=== PATIENT | female | born 1960 | race Caucasian/White ===

== ENCOUNTER 2024-05-14 07:50 | Emergency (ER) | payer SELFPAY ==
[2024-05-14] MEDS ORDERED: CEFTRIAXONE 500 MG/VIAL ONE (08:49)
[2024-05-14] MEDS ORDERED: AZITHROMYCIN 250 MG TAB ONE (08:49)
[2024-05-14] MEDS ORDERED: dexAMETHasone 10 MG/ML VIAL ONE (08:49)
[2024-05-14] MEDS ORDERED: LIDOCAINE 1% 20 ML MDV ONE (08:50)
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
[2024-05-14 09:41] VITALS: BP 160/102; TEMP 98.4; O2SAT 100
== END 2024-05-14 09:35 | disposition home or self-care (01) ==
LOC: ER 07:50
DX: J01.80 Other acute sinusitis (principal)
CPT/HCPCS: 96372; 99284; J1100; J2001

== ENCOUNTER 2024-10-23 09:10 | Inpatient (IN) | payer MEDICAID, SELFPAY ==
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
--- NOTE | 2024-10-23 10:03 | RAD REPORT ---
EXAM: Chest Single View HISTORY: COUGH COMPARISON: None. FINDINGS: LUNGS/PLEURA: Scattered areas of mild nodularity and bronchial wall thickening. No consolidative airs pace disease or edema. MEDIASTINUM: The mediastinal silhouette is within normal limits. CARDIAC: The cardiac silhouette is within normal limits. UPPER ABDOMEN: No significant abnormality. BONES: No acute abnormality. LINES/TUBES/OTHER: N/A IMPRESSION: Scattered mild nodularity and bronchial wall thickening concerning for a mild infectious or inflammat ory process. No consolidative airspace disease or edema.
[2024-10-23 10:30] LABS: SARS-CoV-2 Antigen CONTROL BLUE LINE VIS/BG OK; SARS-CoV-2 Antigen Rapid Res Negative (Negative)
[2024-10-23] MEDS ORDERED: IPRATROPIUM BROM 0.5MG/2.5ML ONE (11:07)
[2024-10-23] MEDS ORDERED: ALBUTEROL 2.5 MG/3 ML NEB SOL ONE (11:07)
[2024-10-23 11:54] LABS: Absolute Basophils 0.1 K/uL (0-0.5); Absolute Lymphocytes (CBC) 1.8 K/uL (0.7-4.9); Absolute Monocytes 2.6 K/uL (0.1-1.3); Basophils % 0.2 % (0-1.3); Hematocrit 37.7 % (36.0-45.0); Hemoglobin 12.5 g/dL (12.0-15.0); Lymphocytes % 6.2 % (15.3-44.8); MCH 28.6 pg (27.0-35.0); MCHC 33.3 g/dL (32.0-36.0); MCV 85.9 fL (80-100); MPV 8.6 fL (7.6-11.3); Monocytes % 9.3 % (3.3-12.3); Neutrophils % 84.3 % (41.7-73.7); Platelets 321 thou/uL (152-406); RBC Red Blood Cell Count 4.39 M/uL (3.86-4.86); Red Cell Distribution Width 12.9 % (12.1-15.2)
[2024-10-23 12:14] LABS: Anion Gap 9.1 mEq/L (5.0-15.0); Potassium 4.1 mEq/L (3.5-5.1); Troponin High Sensitivity 3.7 pg/mL (<58.9)
[2024-10-23 13:03] LABS: Band Neutrophils 1 % (0-1); Differential Total Cells Count 100; Lymphocytes 7 % (15-42); Monocytes 10 % (0-10); Segmented Neutrophils 81 % (40-80)
[2024-10-23 13:04] LABS: Blood Morphology Comment NOT SEEN (NOT SEEN); Platelet Estimate ADEQ
--- NOTE | 2024-10-23 13:13 | EDPHYS ---
Physician Documentation [facility] Name: Keturah Torres Age: 64 yrs Sex: Female : 1960 Arrival Date: 10/23/2024 Time: 09:10 Bed 13 Private MD: ED Physician Pj Lechuga HPI: 10/23 11:34 This 64 yrs old Female presents to ER via Ambulatory with complaints of Flu Symptoms. sp3 11:34 64-year-old female with history of probable undiagnosed COPD due to lifelong smoking, sp3 who resides at the [facility], now presents to the ED with chief complaint productive cough, congestion, and bodyaches. Patient denies any back pain, abdominal pain, vomiting, diarrhea, headache, rash, syncope, or any other signs or symptoms on ROS at this time. Positive sick contacts reported.. Historical: - Allergies: 09:47 No Known Allergies; iw - Home Meds: 09:47 None [Active]; iw - PMHx: 09:47 None; iw - PSHx: 09:47 tubal ligation; iw - Immunization history:: Adult Immunizations Flu vaccine is not up to date. - Infectious Disease History:: Denies. - Social history:: Smoking status: Patient/guardian denies using tobacco, Stopped _ months ago 1. ROS: 11:35 Constitutional: Negative for fever, chills, and weight loss, Eyes: Negative for injury, sp3 pain, redness, and discharge, Neck: Negative for injury, pain, and swelling, Abdomen/GI: Negative for abdominal pain, nausea, vomiting, diarrhea, and constipation, Back: Negative for injury and pain, MS/Extremity: Negative for injury and deformity, Skin: Negative for injury, rash, and discoloration, Neuro: Negative for headache, weakness, numbness, tingling, and seizure, Psych: Negative for depression, anxiety, suicide ideation, homicidal ideation, and hallucinations, Allergy/Immunology: Negative for hives, rash, and allergies, Endocrine: Negative for neck swelling, polydipsia, polyuria, polyphagia, and marked weight changes, Hematologic/Lymphatic: Negative for swollen nodes, abnormal bleeding, and unusual bruising, 11:35 All other systems are negative, Exam: 11:36 Constitutional: This is a well developed, well nourished patient who is awake, alert, sp3 and in no acute distress. Head/Face: Normocephalic, atraumatic. Eyes: Pupils equal round and reactive to light, extra-ocular motions intact. Lids and lashes normal. Conjunctiva and sclera are non-icteric and not injected. Cornea within normal limits. Periorbital areas with no swelling, redness, or edema. ENT: Nares patent. No nasal discharge, no septal abnormalities noted. External auditory canals are clear. Oropharynx with no redness, swelling, or masses, exudates, or evidence of obstruction, uvula midline. Mucous membranes moist. Neck: Trachea midline, no thyromegaly or masses palpated, and no cervical lymphadenopathy. Supple, full range of motion without nuchal rigidity, or vertebral point tenderness. No Meningismus. Chest/axilla: Normal chest wall appearance and motion. Nontender with no deformity. No lesions are appreciated. Abdomen/GI: Soft, non-tender, with normal bowel sounds. No distension or tympany. No guarding or rebound. No evidence of tenderness throughout. Back: No spinal tenderness. No costovertebral tenderness. Full range of motion. Skin: Warm, dry with normal turgor. Normal color with no rashes, no lesions, and no evidence of cellulitis. MS/ Extremity: Pulses equal, no cyanosis. Neurovascular intact. Full, normal range of motion. Neuro: Awake and alert, GCS 15, oriented to person, place, time, and situation. Cranial nerves II-XII grossly intact. Motor strength 5/5 in all extremities. Sensory grossly intact. Cerebellar exam normal. Normal gait. Psych: Awake, alert, with orientation to person, place and time. Behavior, mood, and affect are within normal limits. 11:36 Respiratory: Patient tachycardic in the 110 range. Active productive cough noted with mild rhinorrhea as well. Patient with scattered wheeze., Vital Signs: 09:47 BP 146 / 86; Pulse 118; Resp 22; Temp 98.9; Pulse Ox 93% on R/A; Weight 53.52 kg; iw Height 5 ft. 7 in. ; 10:57 BP 141 / 86; Pulse 114; Resp 20; Pulse Ox 93% on R/A; me1 12:00 BP 140 / 73; Pulse 113; Resp 18; Pulse Ox 95% on 2 lpm NC; me1 13:00 BP 143 / 77; Pulse 113; Resp 18; Pulse Ox 93% on 2 lpm NC; me1 14:00 BP 152 / 83; Pulse 110; Resp 18; Pulse Ox 94% on 2 lpm NC; me1 15:00 BP 141 / 76; Pulse 114; Resp 16; Pulse Ox 95% on 2 lpm NC; me1 16:00 BP 154 / 82; Pulse 109; Resp 17; Pulse Ox 98% on 2 lpm NC; me1 17:00 BP 140 / 77; Pulse 108; Resp 19; Pulse Ox 92% on 2 lpm NC; me1 18:00 BP 145 / 79; Pulse 109; Resp 16; Pulse Ox 92% on 2 lpm NC; me1 18:30 BP 130 / 75; Pulse 111; Resp 19; Pulse Ox 93% on 2 lpm NC; me1 19:00 BP 128 / 65; Pulse 102; Resp 16; Pulse Ox 95% on 2 lpm NC; me1 09:47 Body Mass Index 18.48 (53.52 kg, 170.18 cm) iw MDM: 09:19 Medical Screening Exam initiated sp3 11:37 Data reviewed: vital signs, nurses notes, lab test result(s), EKG, radiologic studies. sp3 ED course: 64-year-old female with probable undiagnosed COPD now with rhonchi, cough, URI symptoms. Differential diagnosis includes viral illness, bronchitis, pneumonia, COVID-19, influenza, CHF, COPD exacerbation, among others. Workup will include chest x-ray, general labs, swabs and supportive care. Nebulizer also ordered. Disposition pending workup and patient course.. 13:11 ED course: Patient with 28,000 WBC count coupled with chest x-ray findings we will sp3 treat for pneumonia. Cefepime and vancomycin ordered. Lactate also added as well as normal saline. Patient will be admitted to the hospitalist service for continued management.. 10/23 09:19 Order name: Flu; Complete Time: 13: sp3 10/23 09:19 Order name: SARS RAPID; Complete Time: :3 10/23 09:19 Order name: RSV; Complete Time: 13:3 10/23 11:07 Order name: Basic Metabolic Panel; Complete Time: 13:3 10/23 11:07 Order name: CBC with Diff; Complete Time: 13: sp3 10/23 11:07 Order name: NT PRO-BNP; Complete Time: 13:09 sp3 10/23 11:07 Order name: Troponin HS; Complete Time: 13:09 sp3 10/23 12:00 Order name: Manual Differential; Complete Time: 13:09 EDMS 10/23 13:10 Order name: Lactate w/ 2H reflex if indic.; Complete Time: 14:07 3 10/23 13:10 Order name: Blood Culture Adult (2) sp3 10/23 14:46 Order name: Magnesium; Complete Time: 15:15 EDMS 10/23 14:46 Order name: Phosphorus; Complete Time: 15:15 EDMS 10/23 14:46 Order name: Urinalysis w/ reflexes EDMS 10/23 14:46 Order name: Basic Metabolic Panel EDMS 10/23 14:46 Order name: Basic Metabolic Panel EDMS 10/23 14:46 Order name: CBC with Automated Diff EDMS 10/23 14:46 Order name: CBC with Automated Diff EDMS 10/23 14:46 Order name: Lipid Profile EDMS 10/23 14:46 Order name: Lipid Profile EDMS 10/23 09:19 Order name: CXR XRAY; Complete Time: 10:04 3 10/23 14:49 Order name: Thorax Wo Con; Complete Time: 15:15 EDMS 10/23 11:07 Order name: EKG; Complete Time: 11:08 3 10/23 11:07 Order name: IV Saline Lock; Complete Time: 11:49 sp3 10/23 11:07 Order name: Labs collected and sent; Complete Time: 11:49 3 10/23 11:07 Order name: O2 Per Protocol; Complete Time: 11:49 sp3 10/23 11:07 Order name: O2 Sat Monitoring; Complete Time: 11:49 sp3 10/23 11:07 Order name: EKG - Nurse/Tech; Complete Time: 12:07 3 Administered Medications: 11:09 Drug: DuoNeb Nebulize (3:1) (2.5 mg - 0.5 mg) 3 ml Nebulizer once Route: Nebulizer; me1 11:36 Follow up: Response: No adverse reaction; Wheezing diminished me1 13:33 Drug: NS 0.9% IV 1000 ml IV at 1000 ml once; to be given as a bolus over 60 minutes me1 Route: IV; Rate: 1000 ml; Site: right antecubital; 14:40 Follow up: Response: No adverse reaction; IV Status: Completed infusion; IV Intake: me1 1000ml 13:34 Drug: Cefepime IVPB 1 grams IVPB at 200 ml/hr once over 30 mins; (mix in NS 100 mL) me1 Route: IVPB; Rate: 200 ml/hr; Infused Over: 30 mins; Site: right antecubital; 13:58 Follow up: Response: No adverse reaction; IV Status: Completed infusion; IV Intake: me1 100ml 13:58 Drug: vancoMYCIN IVPB 1 grams IVPB once over 2 hrs Route: IVPB; Infused Over: 2 hrs; me1 Site: right antecubital; 15:58 Follow up: Response: No adverse reaction; IV Status: Completed infusion; IV Intake: me1 250ml Disposition Summary: 10/23/24 13:12 Hospitalization Ordered Notes: Hospitalization Status: Inpatient Admission sp3 Provider: Christin Johnson sp3 Condition: Stable sp3 Problem: an acute exacerbation sp3 Symptoms: have worsened sp3 Bed/Room Type: Standard sp3 Location: Telemetry/MedSurg (Inpatient)(10/23/24 18:33) bd Room Assignment: [facility](10/23/24 18:33) bd Diagnosis - Pneumonia, hypoxia, leukocytosis sp3 Forms: - Medication Reconciliation Form sp3 - SBAR form sp3 - Leadership Thank You Letter sp3 Signatures: Dispatcher [employer] EDCaren Madrigal Irene, RN RN Pj Lechuga MD MD sp3 Laura Rubi RN RN me1 Corrections: (The following items were deleted from the chart) 16:35 13:12 Telemetry/MedSurg (Inpatient) sp3 bd 16:35 13:12 sp3 bd 18:33 16:35 [facility] ER HOLD bd bd 18:33 16:35 ERHOLD- bd bd
--- NOTE | 2024-10-23 13:13 | ER ---
Nurse's Notes [facility] Name: Keturah Torres Age: 64 yrs Sex: Female : 1960 Arrival Date: 10/23/2024 Time: 09:10 Bed 13 Private MD: Diagnosis: Pneumonia, hypoxia, leukocytosis Presentation: 10/23 09:47 Chief complaint: Patient states: cough, nausea , diarrhea X 10 days. Coronavirus iw screen: Client presents with at least one sign or symptom that may indicate coronavirus-19. Ebola Screen: No symptoms or risks identified at this time. Initial Sepsis Screen: Does the patient meet any 2 criteria? HR > 90 bpm. Does the patient have a suspected source of infection? No. Patient's initial sepsis screen is negative. Risk Assessment: Do you want to hurt yourself or someone else? Patient reports no desire to harm self or others. Onset of symptoms was October 13, 2024. 09:47 Method Of Arrival: Ambulatory iw 09:47 Acuity: PAULA 3 iw Historical: - Allergies: 09:47 No Known Allergies; iw - Home Meds: 09:47 None [Active]; iw - PMHx: 09:47 None; iw - PSHx: 09:47 tubal ligation; iw - Immunization history:: Adult Immunizations Flu vaccine is not up to date. - Infectious Disease History:: Denies. - Social history:: Smoking status: Patient/guardian denies using tobacco, Stopped _ months ago 1. Screenin:38 [facility] ED Fall Risk Assessment (Adult) History of falling in the last 3 months, me1 including since admission No falls in past 3 months (0 pts) Confusion or Disorientation No (0 pts) Intoxicated or Sedated No (0 pts) Impaired Gait No (0 pts) Mobility Assist Device Used No (0 pt) Altered Elimination No (0 pt) Score/Fall Risk Level 0 - 2 = Low Risk Maintained a safe environment, Provided non-skid footwear, Hourly rounding (assess needs \T\ fall precautionary measures) done. Abuse screen: Denies threats or abuse. Nutritional screening: No deficits noted. Tuberculosis screening: No symptoms or risk factors identified. Assessment: 10:38 General: Appears ill, well developed, well nourished, Behavior is calm, cooperative, me1 appropriate for age, Reports cough, nausea, diarrhea x 10 days. Pain: Denies pain. Neuro: Level of Consciousness is awake, alert, obeys commands, Oriented to person, place, time, situation, Appropriate for age. Cardiovascular: Patient's skin is warm and dry. Respiratory: Reports cough that is persistent Airway is patent Respiratory effort is even, unlabored, Respiratory pattern is regular, symmetrical. GI: Reports diarrhea, nausea, since 10 days ago. : No signs and/or symptoms were reported regarding the genitourinary system. EENT: No signs and/or symptoms were reported regarding the EENT system. Derm: Skin is intact, is healthy with good turgor, Skin is pink, warm \T\ dry. Musculoskeletal: No signs and/or symptoms reported regarding the musculoskeletal system. Vital Signs: 09:47 BP 146 / 86; Pulse 118; Resp 22; Temp 98.9; Pulse Ox 93% on R/A; Weight 53.52 kg; iw Height 5 ft. 7 in. ; 10:57 BP 141 / 86; Pulse 114; Resp 20; Pulse Ox 93% on R/A; me1 12:00 BP 140 / 73; Pulse 113; Resp 18; Pulse Ox 95% on 2 lpm NC; me1 13:00 BP 143 / 77; Pulse 113; Resp 18; Pulse Ox 93% on 2 lpm NC; me1 14:00 BP 152 / 83; Pulse 110; Resp 18; Pulse Ox 94% on 2 lpm NC; me1 15:00 BP 141 / 76; Pulse 114; Resp 16; Pulse Ox 95% on 2 lpm NC; me1 16:00 BP 154 / 82; Pulse 109; Resp 17; Pulse Ox 98% on 2 lpm NC; me1 17:00 BP 140 / 77; Pulse 108; Resp 19; Pulse Ox 92% on 2 lpm NC; me1 18:00 BP 145 / 79; Pulse 109; Resp 16; Pulse Ox 92% on 2 lpm NC; me1 18:30 BP 130 / 75; Pulse 111; Resp 19; Pulse Ox 93% on 2 lpm NC; me1 19:00 BP 128 / 65; Pulse 102; Resp 16; Pulse Ox 95% on 2 lpm NC; me1 09:47 Body Mass Index 18.48 (53.52 kg, 170.18 cm) iw ED Course: 09:16 Patient arrived in ED. im 09:18 Pj Lechuga MD is Attending Physician. sp3 09:47 Triage completed. iw 09:48 Arm band placed on. iw 10:00 CXR XRAY In Process Unspecified. EDMS 10:16 RSV Sent. bc6 10:16 SARS RAPID Sent. bc6 10:16 Flu Sent. bc6 10:37 Laura Rubi, RN is Primary Nurse. me1 10:38 Patient has correct armband on for positive identification. Bed in low position. Call me1 light in reach. Side rails up X2. Provided Education on: POC. Verbalized understanding.. Client placed on continuous cardiac and pulse oximetry monitoring. NIBP monitoring applied. Pulse ox on. NIBP on. 10:38 No provider procedures requiring assistance completed. me1 10:39 Patient placed in an exam room, on a stretcher. ll1 13:12 Christin Johnson MD is Hospitalizing Provider. sp3 13:33 Blood Culture Adult (2) Sent. me1 13:33 Lactate w/ 2H reflex if indic. Sent. me1 15:02 Thorax Wo Con In Process Unspecified. EDMS 17:00 Patient admitted, IV remains in place. me1 Administered Medications: 11:09 Drug: DuoNeb Nebulize (3:1) (2.5 mg - 0.5 mg) 3 ml Nebulizer once Route: Nebulizer; me1 11:36 Follow up: Response: No adverse reaction; Wheezing diminished me1 13:33 Drug: NS 0.9% IV 1000 ml IV at 1000 ml once; to be given as a bolus over 60 minutes me1 Route: IV; Rate: 1000 ml; Site: right antecubital; 14:40 Follow up: Response: No adverse reaction; IV Status: Completed infusion; IV Intake: me1 1000ml 13:34 Drug: Cefepime IVPB 1 grams IVPB at 200 ml/hr once over 30 mins; (mix in NS 100 mL) me1 Route: IVPB; Rate: 200 ml/hr; Infused Over: 30 mins; Site: right antecubital; 13:58 Follow up: Response: No adverse reaction; IV Status: Completed infusion; IV Intake: me1 100ml 13:58 Drug: vancoMYCIN IVPB 1 grams IVPB once over 2 hrs Route: IVPB; Infused Over: 2 hrs; me1 Site: right antecubital; 15:58 Follow up: Response: No adverse reaction; IV Status: Completed infusion; IV Intake: me1 250ml Medication: 10:38 VIS not applicable for this client. me1 Intake: 13:58 IV: 100ml; Total: 100ml. me1 14:40 IV: 1000ml; Total: 1100ml. me1 15:58 IV: 250ml; Total: 1350ml. me1 Outcome: 13:12 Decision to Hospitalize by Provider. sp3 17:00 Admitted to ER Hold. Please see [facility] for further documentation. me1 17:00 Condition: stable 17:00 Instructed on the need for admit, 18:54 Admitted to Med/surg accompanied by tech, via wheelchair, room 207, with oxygen, with sd1 chart, Report called to faxed, receipt confirmed with Suki 18:54 Condition: stable 18:54 Instructed on the need for admit, 19:55 Patient left the ED. sd1 Signatures: Dispatcher [employer] Sena Elizabeth RN RN Anil Mathis RN RN ll1 Pj Lechuga MD MD sp3 Dariela Dhaliwal 6 Maureen Adhikari Michelle, RN RN me1 Corrections: (The following items were deleted from the chart) 09:48 09:47 BP 146 / 86; Pulse 118bpm; Resp 22bpm; Pulse Ox 93% RA; Temp 98.9F; [facility] 10:58 10:57 BP 141 / 86; Pulse 114bpm; Resp 20bpm; Pulse Ox 90% RA; sd1 me1 13:45 13:00 Reassessment: Accompanied patient to CT me1 me1
[2024-10-23] MEDS ORDERED: CEFAZOLIN SODIUM 1 GM/VIAL ONE (13:21)
[2024-10-23] MEDS ORDERED: NA CHLORIDE 0.9% 100 ML ONE (13:21)
[2024-10-23] MEDS ORDERED: VANCOMYCIN 1 GM/VIAL ONE (13:21)
[2024-10-23] MEDS ORDERED: NA CHLORIDE 0.9% 250 ML ONE (13:21)
[2024-10-23] MEDS ORDERED: NA CHLORIDE 0.9% 1,000 ML ONE (13:21)
[2024-10-23] MEDS ORDERED: CEFEPIME 1 GM/VIAL ONE (13:25)
[2024-10-23] MEDS ORDERED: ONDANSETRON 4 MG/2 ML VIAL IV PRN (14:41)
[2024-10-23] MEDS ORDERED: HYDROCODONE/APAP 5/325 MG TAB PO PRN (14:41)
--- NOTE | 2024-10-23 14:51 | P.HP ---
Certification for Inpatient Patient admitted to: Inpatient With expected LOS: >2 Midnights Patient will require the following post-hospital care: None Practitioner: I am a practitioner with admitting privileges, knowledge of patient current condition, hospital course, and medical plan of care. Services: Services provided to patient in accordance with Admission requirements found in Title 42 Section 412.3 of the Code of Federal Regulations Patient History Date of Service: 10/23/24 Reason for admission: SOB, Cough History of Present Illness: Patient is a 64-year-old female with a past medical history significant for COPD, CKD, nicotine dependence who presents with complaint of shortness of breath, cough, Rhinorrhea and fever. Patient reported that she has been experiencing symptoms for the past couple of days. Patient reported associated signs and symptoms of chills, nausea, vomiting, dizziness, fatigue, weakness, generalized body aches, poor appetite and generalized malaise. Patient denies any other signs and symptoms. Symptoms are aggravated or relieved by anything. Patient decided to present to the hospital due to worsening symptoms. Allergies No Known Allergies Allergy (Unverified 10/23/24 15:22) Home medications list reviewed: No - Past Medical/Surgical History Diabetic: No -: COPD -: Tobacco Use -: CKD Past Surgical History: Reviewed- Non-Contributory - Family History Family History: Reviewed- Non-Contributory - Social History Smoking Status: Current every day smoker Smoking therapy provided: Yes Patient receptive to therapy: Yes Alcohol use: Yes CD- Drugs: No Caffeine use: Yes Place of Residence: Home Review of Systems General: Fever, Chills, Weakness, Malaise, Other (generalized body aches, poor appetite. ) Eyes: Unremarkable ENT: Nose Congestion, Other (Rhinorrhea) Respiratory: Cough, Shortness of Breath Cardiovascular: Unremarkable Gastrointestinal: Nausea, Vomiting Genitourinary: Unremarkable Musculoskeletal: Unremarkable Integumentary: Unremarkable Neurological: Weakness Lymphatics: Unremarkable Physical Examination - Physical Exam General: Alert, In no apparent distress, Oriented x3, Cooperative HEENT: Atraumatic, PERRLA, Mucous membr. moist/pink, EOMI, Sclerae nonicteric Neck: Supple, 2+ carotid pulse no bruit, No LAD, Without JVD or thyroid abnormal ity Respiratory: Normal air movement, Diminished Cardiovascular: No edema, Regular rate/rhythm, Normal S1 S2 Capillary refill: <2 Seconds Gastrointestinal: Normal bowel sounds, Non-distended, No tenderness Musculoskeletal: No clubbing, No swelling, No tenderness Integumentary: No rashes, No significant lesion Neurological: Normal speech, Normal tone, Normal affect Lymphatics: No axilla or inguinal lymphadenopathy - Studies Laboratory Data (last 24 hrs) 10/23/24 10/23/24 11:45 11:45 WBC 28.50 H Hgb 12.5 Hct 37.7 Plt Count 321 Sodium 130 L Potassium 4.1 BUN 20 H Creatinine 0.85 Glucose 107 H Microbiology Data (last 24 hrs): 10/23/24 10:10 Nasopharnyx Influenza Type A Antigen Screen - Final 10/23/24 10:10 Nasopharnyx Influenza Type B Antigen Screen - Final 10/23/24 10:10 Nasopharnyx Respiratory Syncytial Virus Ag Scrn - Final Assessment and Plan - Plan Acute respiratory failure with hypoxia Acute on chronic COPD exacerbation Pneumonia. --Chest Xray indicates findings concerning for an infectious or inflammatory process. --Patient placed on antibiotics. --Blood cultures pending. --Continue nebulizer treatment with Atrovent\albuterol Sepsis POA. Leukocytosis --Blood cultures pending. --Continue antibiotics. CKD 2. --Baseline functions unknown. --Continue p.o. hydration. --Will continue to monitor renal functions. Nausea and vomiting. --Antiemetics on board. Cough. --Continue antitussives. Nicotine dependence. --Patient counseled on tobacco cessation. --Refuses nicotine patch. DVT prophylaxis with Lovenox subQ. Discharge Plan: Home Plan to discharge in: Greater than 2 days - Advance Directives Does patient have a Living Will: No Does patient have a Durable POA for Healthcare: No - Code Status/Comfort Care Code Status Assessed: Yes Code Status: Full Code Physician Review: Patient Assessed, Agree with Above Assessment and Plan Critical Care: No
[2024-10-23 15:08] LABS: Magnesium 2.1 mg/dL (1.6-2.4); Phosphorus 3.8 mg/dL (2.5-4.9)
--- NOTE | 2024-10-23 15:11 | RAD REPORT ---
EXAMINATION: CT CHEST WITHOUT CONTRAST CLINICAL INDICATION: R O PNA TECHNIQUE: Routine CT scan of the chest without intravenous contrast. One or more of the following do se reduction techniques were used: Automated exposure control, adjustment of the mA and/or kV according to patient size, and/or iterative reconstruction. Unless otherwise specified, incidental fi ndings do not require dedicated imaging follow-up. COMPARISON: Plain radiograph same date FINDINGS: LOWER NECK: Visualized thyroid gland and soft tissues are normal. LUNGS: There is tree-in-bud opacity seen posterior right upper lobe, superior segment left lower lobe to a lesser extent left upper lobe. Similar moderate tree-in-bud opacities right middle lobe and both lung bases, greatest in the left posterior gutter. This is compatible with endobronchial spread of infection. PLEURA: No pleural effusion. No pneumothorax. . MEDIASTINUM AND LYMPH NODES: No mediastinal mass or fluid collection. Normal size mediastinal, hilar, and axillary lymph nodes. OSSEOUS STRUCTURES AND CHEST WALL: Intact. Mild mid thoracic wedging. UPPER ABDOMEN: No significant abnormalities. IMPRESSION: Areas of bilateral tree-in-bud opacities are present as detailed most compatible portable with endobr onchial spread of atypical infection. Examination limited by lack of IV contrast.
[2024-10-23] MEDS: ENOXAPARIN 40 MG/0.4 ML SQ SCH (17:00)
[2024-10-23] MEDS ORDERED: ACETAMINOPHEN 325 MG TABLET ONE (17:46)
[2024-10-23] MEDS ORDERED: ENOXAPARIN 40 MG/0.4 ML SQ ONE (17:47)
[2024-10-23] MEDS: ACETAMINOPHEN 325 MG TABLET PO PRN (17:52)
[2024-10-23] MEDS: FLU (Fluarix Triv) TS24-25(6MOS UP)/PF 45 MCG/0.5 ML Syringe IM ONE (18:00)
[2024-10-23] MEDS: ALBUTEROL 2.5 MG/3 ML NEB SOL NEB SCH (20:25)
[2024-10-23] MEDS: IPRATROPIUM BROM 0.5MG/2.5ML NEB SCH (20:25)
[2024-10-23] MEDS: CEFTRIAXONE 1,000 MG in NA CHLORIDE 0.9% 50 ML IVPB SCH (21:45)
[2024-10-24 05:28] LABS: Absolute Basophils 0.1 K/uL (0-0.5); Absolute Lymphocytes (CBC) 1.3 K/uL (0.7-4.9); Absolute Monocytes 1.8 K/uL (0.1-1.3); Absolute Neutrophil 17.8 K/uL (1.8-8.0); Basophils % 0.3 % (0-1.3); Eosinophils % 0.1 % (0-4.4); Hemoglobin 11.6 g/dL (12.0-15.0); Lymphocytes % 6.1 % (15.3-44.8); MCH 29.3 pg (27.0-35.0); MCHC 34.1 g/dL (32.0-36.0); MCV 85.7 fL (80-100); MPV 8.8 fL (7.6-11.3); Monocytes % 8.4 % (3.3-12.3); Neutrophils % 85.1 % (41.7-73.7); Nucleated Red Blood Cells % 0.2 % (0-0); Platelets 281 thou/uL (152-406); RBC Red Blood Cell Count 3.97 M/uL (3.86-4.86); Red Cell Distribution Width 13.3 % (12.1-15.2)
[2024-10-24 05:40] LABS: Anion Gap 9.1 mEq/L (5.0-15.0); Potassium 4.1 mEq/L (3.5-5.1)
[2024-10-24] MEDS: AZITHROMYCIN IV 500 MG in NA CHLORIDE 0.9% 250 ML IVPB SCH (09:38)
[2024-10-24 12:36] LABS: Sqamous Epithelial <5 /HPF (None Seen); Urine Bacteria None Seen /HPF (<20); Urine Bilirubin NEGATIVE (Negative); Urine Blood Negative (Negative); Urine Clarity Turbid (Clear); Urine Color Yellow (Yellow); Urine Crystals Unidentified Few /HPF (None Seen); Urine Culture Reflex Order NOT NEEDED; Urine Glucose TRACE (Negative); Urine Ketones 1+ (Negative); Urine Microscopic Reflex YN ORDER UMIC; Urine Nitrite NEGATIVE (Negative); Urine Protein TRACE (Negative); Urine Urobilinogen 1+ (Normal); Urine WBC <5 /HPF (<5)
[2024-10-25 04:43] LABS: Absolute Basophils 0.1 K/uL (0-0.5); Absolute Lymphocytes (CBC) 1.2 K/uL (0.7-4.9); Absolute Neutrophil 18.6 K/uL (1.8-8.0); Basophils % 0.5 % (0-1.3); Eosinophils % 0.1 % (0-4.4); Hematocrit 33.2 % (36.0-45.0); Lymphocytes % 5.6 % (15.3-44.8); MCH 28.3 pg (27.0-35.0); MCV 85.8 fL (80-100); MPV 8.9 fL (7.6-11.3); Monocytes % 9.2 % (3.3-12.3); Neutrophils % 84.6 % (41.7-73.7); Platelets 273 thou/uL (152-406); RBC Red Blood Cell Count 3.87 M/uL (3.86-4.86); Red Cell Distribution Width 12.8 % (12.1-15.2)
[2024-10-25 05:18] LABS: Albumin 2.2 g/dL (3.4-5.0); Albumin/Globulin Ratio 0.5 (1.1-1.8); Anion Gap 8.6 mEq/L (5.0-15.0); Bilirubin Total 0.4 mg/dL (0.2-1.0); Globulin 4.8 g/dL (2.3-3.5); Magnesium 1.9 mg/dL (1.6-2.4); Potassium 3.6 mEq/L (3.5-5.1)
--- NOTE | 2024-10-25 07:34 | RAD REPORT ---
EXAMINATION: ONE VIEW CHEST XR CLINICAL INDICATION: pneumonia TECHNIQUE: Frontal chest projection is submitted. Examination is limited by patient positioning and t echnique. COMPARISON: 10/23/2024 FINDINGS: Emphysematous changes are noted. Moderate left basilar lung infiltrate/consolidation has progressed m oderately since prior study. The right lung appears grossly clear. The heart is normal in size. No displaced fractures identified. IMPRESSION: Moderate progression of left base pneumonia/infiltrate since prior study.
[2024-10-25] MEDS: POTASSIUM CL SA 10 MEQ TAB PO ONE (09:25)
[2024-10-25] MEDS: PROMETHAZINE-DM 5 ML OSYR PO PRN (21:26)
[2024-10-26 05:10] LABS: Anion Gap 8.8 mEq/L (5.0-15.0); Potassium 3.8 mEq/L (3.5-5.1)
[2024-10-26 15:41] VITALS: O2SAT 97
[2024-10-26 15:44] VITALS: BMI 18.5
[2024-10-26 16:17] VITALS: BP 121/74; TEMP 98.2
--- NOTE | 2024-10-28 12:22 | EKG ---
Test Date: 2024-10-23 Test Time: 11:59:15 Weatherization Administrator: ERICKW MEASUREMENT RESULTS: Intervals: Rate: 113 MO: 128 QRSD: 76 QT: 326 QTc: 447 [place]: P: 82 MO: 128 QRS: 90 T: 81 INTERPRETIVE STATEMENTS: Sinus tachycardia Right atrial enlargement Rightward axis Pulmonary disease pattern Abnormal ECG Compared to ECG 10/23/2024 11:58:48 No significant changes Electronically Signed On 10-28-24 12:15:32 PNEUMATIC JACK OPERATOR by Frank Post
--- NOTE | 2024-10-28 12:23 | EKG ---
Test Date: 2024-10-23 Test Time: 11:58:48 Rug Inspector Helper: BCW MEASUREMENT RESULTS: Intervals: Rate: 114 MI: 130 QRSD: 74 QT: 308 QTc: 424 [place]: P: 82 MI: 130 QRS: 91 T: 78 INTERPRETIVE STATEMENTS: Sinus tachycardia Right atrial enlargement Rightward axis Pulmonary disease pattern Abnormal ECG No previous ECG available for comparison Electronically Signed On 10-28-24 12:15:33 CHART CALCULATOR by Frank Post
== END 2024-10-26 17:01 | disposition home or self-care (01) | DRG 871 ==
LOC: ER 09:10 → ERHOLD 14:41 → 2ND 18:54
PROVIDERS: ADMIT Hospitalist; ATTEND Hospitalist
DX: A41.9 Sepsis, unspecified organism (principal); J18.9 Pneumonia, unspecified organism; J96.01 Acute respiratory failure with hypoxia; J44.1 Chronic obstructive pulmonary disease with (acute) exacerbation; J44.0 Chronic obstructive pulmonary disease with (acute) lower respiratory infection; J34.89 Other specified disorders of nose and nasal sinuses; N18.2 Chronic kidney disease, stage 2 (mild); F17.200 Nicotine dependence, unspecified, uncomplicated; Z98.51 Tubal ligation status; Z71.6 Tobacco abuse counseling; Z11.52 Encounter for screening for COVID-19
CPT/HCPCS: 36415; 71045; 71250; 80048; 80053; 80061; 81001; 83605; 83735; 83880; 84100; 84145; 84484; 85025; 87040; 87804; 87807; 87811; 93005; 94640; 94760; 96365; 96367; 99285; J0690; J0692; J0696; J1650; J7030; J7050; J7613; J7644